=== PATIENT | male | born 1970 | race Caucasian/White ===

== ENCOUNTER 2016-12-17 11:04 | Emergency (ER) | payer MEDICAID ==
[2016-12-17 11:36] LABS: BASOPHILS 0.5 % (0-2); EOSINOPHILS 0.6 % (0-7); HEMATOCRIT 45.4 % (42.0-54.0); HEMOGLOBIN 15.2 g/dL (13.5-17.5); IMMATURE GRANULOCYTES 0.1 % (0-5); LYMPHOCYTES 31.7 % (15-50); MCH 28.8 pg (26.0-34.0); MCHC 33.5 g/dL (31.0-37.0); MCV 86.1 fL (80.0-100.0); MEAN PLATELET VOLUME 10.2 fL (7.4-10.4); MONOCYTES 7.6 % (2-11); NEUTROPHILS 59.5 % (40-80); PLATELET COUNT 230 10x3/uL (130-400); RBC 5.27 10x6/uL (4.20-6.10); RDW 15.2 % (11.5-14.5); WBC 8.2 10x3/uL (4.8-10.8)
[2016-12-17 12:16] LABS: ALBUMIN 3.4 g/dL (3.4-5.0); ANION GAP 13.9 mmol/L (8-16); BILIRUBIN - TOTAL 1.73 mg/dL (0.2-1.3); CALCIUM 9.1 mg/dL (8.5-10.1); CARBON DIOXIDE 23.9 mmol/L (21.0-32.0); CREATININE - SERUM 1.4 mg/dL (0.6-1.3); POTASSIUM - SERUM 4.8 mmol/L (3.5-5.1); PROTEIN - SERUM 7.1 g/dL (6.4-8.2)
[2016-12-17 12:34] LABS: MAGNESIUM - SERUM 1.9 mg/dL (1.8-2.4)
[2016-12-17 12:36] LABS: TROPONIN-I 0.324 ng/mL (0.000-0.060)
[2016-12-19 09:11] VITALS: BMI 30.4
== END 2016-12-17 14:28 | disposition left against medical advice (07) ==
LOC: D.ER 11:04
PROVIDERS: Emergency Medicine
DX: R79.89 Other specified abnormal findings of blood chemistry (principal); F15.90 Other stimulant use, unspecified, uncomplicated; F17.200 Nicotine dependence, unspecified, uncomplicated

== ENCOUNTER 2016-12-18 05:22 | Outpatient (CLI) | payer MEDICAID ==
[~2016-12-18] VITALS: Ht 172.7 cm; Wt 90.7 kg
--- NOTE | ~2016-12-18 | HEMODYNAMI ---
PATIENT:DELVIN HSU MEDICAL RECORD: [id number] : 66 LOCATION:[facility]# [id number] ADMISSION DATE: 12/18/16 Generatedon:12/18/20169:31 Patient name: DELVIN HSU Patient #: [id number] SSN: : 1970 Date of study: 12/18/2016 Page: Of Hemodynamic Procedure Report Patient Data Patient Demographics Procedure consent was obtained First Name: DELVIN Gender: Male Last Name: ARACELIS : 1970 Middle Initial: JOE Age: 46 year(s) Patient #: [id number] Race: Unknown Additional ID: [id number] Contact details [address]: [address] [place] [address] DRIVE State: [place] City: [place] Zip code: [address] Admission Admission Data Admission Date: 12/18/2016 Admission Time: 5:22 Admit Source: Emergency department Lab Results Lab Result Date: 12/18/2016 Lab Result Time: 0:00 Biochemistry Name Units Result Min Max BUN mg/dl 30 --(----)-* 7 18 Creatinine mg/dl 1.6 --(----)-* 0.6 1.3 Troponin l ng/ml 14.285 --(----)-* 0 0.06 CBC Name Units Result Min Max Hemoglobin g/dl 15.8 --(--*-)-- 13.5 17.5 Procedure Procedure Types Cath Procedure Diagnostic Procedure [facility] w/Coronaries Aortic Root Angiography Procedure Description Procedure Date Procedure Date: 12/18/2016 Procedure Start Time: 9:12 Procedure End Time: 9:30 Procedure Staff Name Function Margarito Cannon MD Performing Physician Faisal Gonzalez RT Scrub Lili Swartz RN Nurse Carlos Gaxiola RT Monitor Procedure Data Cath Procedure Fluoroscopy Diagnostic fluoroscopy Total fluoroscopy Time: 1.8 time: 1.8 min min Diagnostic fluoroscopy Total fluoroscopy dose: 612 dose: 612 mGy mGy Contrast Material Contrast Material Type Amount (ml) Isovue 300 102 Entry Location Entry Primary Successful Side Size Upsize Upsize Entry Closure Succes sful Closure Location (Fr) 1 (Fr) 2 (Fr) Remarks Device Remarks Femoral Right 6 Fr Exoseal artery Short Estimated blood loss: 10 ml Diagnostic catheters Device Type Used For End Catheter Placement Cordis 5Fr JL 4.0 Procedure Catheter (MP) Cordis 5Fr 3DRC Catheter Procedure (MP) Cordis 5Fr Pigtail Procedure Catheter (MP) Procedure Complications No complications Procedure Medications Medication Administration Route Dosage Oxygen NC 2 l/min Heparin Flush Bag added to field 2 bags (1000units/500ml NS) Lidocaine 2% added to field 20 Versed I.V. 1 mg Fentanyl I.V. 50 mcg Fentanyl I.V. 50 mcg Hemodynamics Rest HGB: 15.8 (g/dl) Heart Rate: 93 (bpm) Pressure Samples Time Site Value (mmHg) Purpose Heart Use Rate(bpm) 9:15 AO 108/87(98) Snapshot 84 9:19 LV 117/5,29 Snapshot 86 9:21 AO 115/85(98) Pullback 86 9:21 LV 121/9,35 Pullback 86 Gradients Valve Time Site 1 Site 2 Mean SEP/DFP Peak To Heart Use (mmHg) (sec/min) Peak Rate (mmHg) (bpm) Aortic 9:21 LV AO 12 9 6 86 121/9,35 115/85(98) Calculations Valve P-P Mean Valve Index Valve Source Name Gradient Area Flow (cm2) Aortic 6 12 6 12 Snapshots Pre Cath Intra NCS Post Cath Vital Signs Time Heart Resp SPO2 etCO2 [id number] NIBP (mmHg) Rhythm Pain Status Cristy tion Rate (ipm) (%) (mmHg) (mmHg) Level (bpm) 8:58:54 91 22 96 0 0 132/93(104) NSR 4 (11) , 10(A ) Distressing 9:03:12 91 21 99 0 0 130/95(103) NSR 4 (11) , 10(A ) Distressing 9:07:26 89 17 98 0 0 134/105(115) NSR 0 (11) , No 9(A) pain 9:11:42 88 16 98 0 0 133/92(115) NSR 0 (11) , No 9(A) pain 9:16:00 81 16 98 0 0 133/89(100) NSR 0 (11) , No 9(A) pain 9:20:12 87 14 97 0 0 127/99(114) NSR 0 (11) , No 9(A) pain 9:24:24 86 16 96 0 0 130/91(105) NSR 0 (11) , No 9(A) pain 9:28:40 85 13 97 0 0 130/83(105) NSR 0 (11) , No 9(A) pain Medications Time Medication Route Dose Verified Delivered Reason Notes Effect iveness by by 9:03:01 Oxygen NC 2 Margarito Lili Per l/min Davis Swartz RN physician 9:03:11 Heparin Flush added 2 Margarito Margarito used for Bag to bags Davis Cannon MD procedure (1000units/500ml field NS) 9:03:17 Lidocaine 2% added 20ml Margarito Margarito used for to vial Davis Cannon MD procedure field 9:03:23 Versed I.V. 1 mg Margarito Lili for Davis Swartz RN sedation 9:03:30 Fentanyl I.V. 50 Margarito Lili for mcg Davis Swartz RN sedation 9:06:01 Fentanyl I.V. 50 Margarito Lili for mcg Davis Swartz RN sedation Procedure Log Time Note 8:30:57 Faisal Gonzalez RT(R) sent for patient. Start room use. 8:42:49 ACC Patient presents with Unstable Angina CCS Anginal Class 3--Marked limitation of physical activity, angina occurs with ordinary activity.. 8:42:51 Diagnostic Cath status Urgent 8:42:54 Admit Source: Emergency department 8:43:17 Time tracking: Regular hours 8:43:22 Plan of Care:Hemodynamics will remain stable., Cardiac rhythm will remain stable., Comfort level will be maintained., Respiratory function will remain adequate., Patient/ family verbilizes understanding of procedure., Procedure tolerated without complication., Recovers from procedure without complications.. 8:47:58 Lab Result : BUN 30 mg/dl 8:47:58 Lab Result : Creatinine 1.6 mg/dl 8:47:58 Lab Result : Hemoglobin 15.8 g/dl 8:47:58 Lab Result : Troponin l 14.285 ng/ml 8:48:03 Lab results completed and on chart. 8:51:07 Patient received from ED to CCL 1 Alert and oriented. Tansferred to table in Supine position. 8:51:08 Warm blankets applied, and timothy hugger turned on for patient comfort. 8:51:09 Correct patient and procedure confirmed by team. 8:51:11 Signed procedure consent form obtained from patient. 8:51:13 ECG and BP/O2 sat monitors applied to patient. 8:57:39 Vital chart was started 8:57:42 Baseline sample Acquired. 8:57:45 Rhythm: sinus rhythm 8:57:47 Full Disclosure recording started 8:57:52 H&P Date Dictated: 12/18/2016 Emergent; H&P N/A. 8:57:53 Pre-procedure instructions explained to patient. 8:57:53 Pre-op teaching completed and patient verbalized understanding. 8:57:55 Family unavailable. 8:57:56 Patient NPO since Midnight. 8:58:04 Is the patient allergic to Iodine/contrast media? No. 8:58:07 Is patient on blood thinner?No 8:58:09 Patient diabetic? No. 8:58:12 Previous problem with sedation/anesthesia? No ? 8:58:13 Snore? Yes 8:58:14 Sleep apnea? No 8:58:21 Opens mouth fully? Yes 8:58:22 Sticks out tongue? Yes 8:58:24 Airway obstruction? No ? 8:58:26 Dentures? No ? 8:58:29 Pre procedure: right dorsailis pedis pulse 1+ Palpable, but thready & weak; easily obliterated 8:58:31 Physician opted for femoral approach due to high Troponin. 8:58:33 Patient pain scale 4/10 chest pressure, physcian observed.. 9:00:29 Pt has 22g IV in foot that had heparin running, heparin was DC'D upon arrival to [employer]. 9:01:08 Pt has PICC line in left upper arm with 0.9% NaCl at [facility]. 9:01:55 Right groin area was prepped with chlora-prep and draped in sterile fashion 9:01:56 Alarms reviewed by R. N. 9:01:57 Sharps counted by scrub and verified by R.N. 9:02:54 --------ALL STOP TIME OUT------ 9:02:55 Final Timeout: patient, procedure, and site verified with staff and physician. All members of the team are in agreement. 9:02:57 Right groin site verified by team. 9:03:00 Physical assessment completed. ASA score P 2 - A patient with mild systemic disease as per Margarito Cannon MD. 9:03:01 Oxygen 2 l/min NC was administered by Lili Swartz RN; Per physician; 9:03:03 Sedation plan: IV Moderate Sedation Versed, Fentanyl 9:03:11 Heparin Flush Bag (1000units/500ml NS) 2 bags added to field was administered by Margarito Cannon MD; used for procedure; 9:03:17 Lidocaine 2% 20ml vial added to field was administered by Margarito Cannon MD; used for procedure; 9:03:23 Versed 1 mg I.V. was administered by Lili Swartz RN; for sedation; 9:03:30 Fentanyl 50 mcg I.V. was administered by Lili Swartz RN; for sedation; 9:06:01 Fentanyl 50 mcg I.V. was administered by Lili Swartz RN; for sedation; 9:12:48 Procedure started. 9:12:52 Local anesthetic to right femoral artery with Lidocaine 2% by Margarito Cannon MD.INITIAL ACCESS ONLY 9:12:54 Use device set Femoral Dx 9:12:56 Tegaderm 4 x 4 opened to sterile field. 9:12:56 Acist Manifold opened to sterile field. 9:12:57 Acist Hand Control opened to sterile field. 9:12:59 Acist Syringe opened to sterile field. 9:12:59 Bag Decanter opened to sterile field. 9:12:59 Medline Cath Pack opened to sterile field. 9:13:00 St Gino 260cm J .035 wire opened to sterile field. 9:13:01 Diagnostic Infinity 5Fr Multipack catheter opened to sterile field. 9:13:08 Terumo 6Fr Moorcroft Sheath opened to sterile field. 9:14:15 A 6 Fr Short sheath was inserted into the Right Femoral artery 9:15:15 A Cordis 5Fr JL 4.0 Catheter (ANISHA) was advanced over the wire and used for Procedure. 9:15:49 LCA angiography performed. 9:16:33 Catheter exchanged over wire. 9:16:39 A Cordis 5Fr 3DRC Catheter (MP) was advanced over the wire and used for Procedure. 9:17:45 RCA angiography performed. 9:18:15 Catheter exchanged over wire. 9:18:21 A Cordis 5Fr Pigtail Catheter (MP) was advanced over the wire and used for Procedure. 9:20:04 LV angiography performed. 9:20:07 LV gram done using RAY 9:20:20 EF : 20 % 9:20:22 LV hemodynamics recorded. 9:20:25 Injector settings: Ml/sec: 10, Volume: 20, 9:22:33 Aortic Root visualized 9:22:37 Injector settings: Ml/sec: 15, Volume: 30, 9:23:22 Catheter removed. 9:23:30 Cordis 6Fr Exoseal opened to sterile field. 9:23:46 Sheath removed intact; hemostasis achieved with Exoseal to the Right Femoral artery. 9:23:49 Procedure ended.(Physican Out) 9:24:02 Fluoroscopy time 01.80 minutes. 9:24:07 Flurop Dose total: 612 9:24:07 Fluoroscopy dose: 612 mGy 9:24:42 Contrast amount:Isovue 300 102ml. 9:24:54 Sharps counted by scrub and verified by R.N. 9:25:05 Insertion/operative site no bleeding no hematoma. 9:25:09 Post-op/insertion site Right Femoral artery dressed using a 4 x 4 and Tegaderm. 9:25:10 Post Procedure Pulses reassessed and unchanged 9:25:14 Post-procedure physical assessment completed. ASA score P 2 - A patient with mild systemic disease as per Margarito Cannon MD. 9:25:17 Post procedure rhythm: unchanged. 9:25:21 Estimated blood loss: 10 ml 9:25:22 Post procedure instruction explained to patient.Patient verbalizes understanding. 9:25:22 Patient needs reinforcement of post procedure teaching. 9:25:48 Procedure type changed to Cath procedure, Diagnostic procedure, LHC, LHC w/Coronaries, Aortic Root Angiography 9:25:52 Procedure Complication : No complications 9:26:22 Procedure and supply charges have been captured, reviewed, submitted and are correct. 9:29:49 Vital chart was stopped 9::49 See physician's report for complete and final results. 9:29:54 Report given to PCU. 9:30:21 Patient transfered to PCU with Bed. 9:30:24 Procedure ended. 9:30:24 Full Disclosure recording stopped 9:30:35 End room use (Document Last) Device Usage Item Name Manufacture Quantity Catalog Hospital Part Current Minimal Lo t# / Number Charge Number Stock Stock Serial# Code Tegaderm 4 3M 1 [id number] [id number] [id number] 5 x 4 Acist Acist 1 55798 455273 310339 422429 5 Manifold [employer] Inc Acist Hand Acist 1 30819 120588 313360 590419 5 Control [employer] Inc Acist Acist 1 42878 316161 253296 072317 20 Syringe Medical Systems Inc Bag Microtek 1 2002S 078758 65025 392179 5 [employer] Medline Cardinal 1 [id number] 014843 83798 978356 [address] Gino 1 [id number] 289332 240493 570660 30 260cm J .035 wire Diagnostic Cardinal 1 [id number] 068477 76097 793866 30 Infinity Health 5Fr Multipack catheter Terumo 6Fr Terumo 1 [id number] 872864 356562 691237 40 Moorcroft Sheath Cordis 5Fr Cardinal 1 [id number] 5 JL 4.0 Health Catheter (MP) Cordis 5Fr Cardinal 1 489641 5 3DRC Health Catheter (MP) Cordis 5Fr Cardinal 1 039033 5 Pigtail Health Catheter (MP) Cordis 6Fr Cardinal 1 EX600 761978 765900 426971 10 Ali Signature Audit [place] Stage Time Signature Unsigned Intra-Procedure 12/18/2016 Faisal Gonzalez 9:31:40 AM RT(R) Signatures Monitor : Carlos Gaxiola RT Signature : Date : Time : [facility] [address] [facility] [place] [address]
[2016-12-18 07:24] LABS: ALBUMIN 3.3 g/dL (3.4-5.0); ALKALINE PHOSPHATASE 94 U/L (46-116); CALC OSMOLALITY 275 mosm/kg (275-300); CALCIUM 9.1 mg/dL (8.5-10.1); CARBON DIOXIDE 24.8 mmol/L (21.0-32.0); CHLORIDE - SERUM 103 mmol/L (98-107); CREATININE - SERUM 1.6 mg/dL (0.6-1.3); GLUCOSE 94 mg/dL (74-106); POTASSIUM - SERUM 4.7 mmol/L (3.5-5.1); SODIUM 135 mmol/L (136-145); UREA NITROGEN 30 mg/dL (7-18); eGFR NON AFRICAN AMERICAN 49 mL/min (90-120)
[2016-12-18 07:25] LABS: ALT (SGPT) 38 U/L (10-68)
[2016-12-18 07:36] LABS: EOSINOPHILS 2.1 % (0-7); HEMATOCRIT 47.6 % (42.0-54.0); HEMOGLOBIN 15.8 g/dL (13.5-17.5); IMMATURE GRANULOCYTES 0.2 % (0-5); LYMPHOCYTES 45.7 % (15-50); MCH 28.5 pg (26.0-34.0); MCHC 33.2 g/dL (31.0-37.0); MCV 85.9 fL (80.0-100.0); MEAN PLATELET VOLUME 10.5 fL (7.4-10.4); MONOCYTES 9.7 % (2-11); NEUTROPHILS 41.3 % (40-80); PLATELET COUNT 206 10x3/uL (130-400); RBC 5.54 10x6/uL (4.20-6.10); RDW 14.9 % (11.5-14.5); WBC 6.3 10x3/uL (4.8-10.8)
[2016-12-18 07:38] LABS: CHOL - HDL RATIO 2.8 ratio (2.3-4.9); CHOLESTEROL, TOTAL 152 mg/dL (0-200); CKMB 56.9 U/L (0.0-3.6); HDL CHOLESTEROL 54 mg/dL (32-96); LDL CHOLESTEROL 81 mg/dL (0-100); LDL-HDL RATIO 1.5 ratio (1.5-3.5); TRIGLYCERIDE 88 mg/dL (30-200)
[2016-12-18 07:40] LABS: CREATINE KINASE 340 UL (21-232)
[2016-12-18 07:43] LABS: TROPONIN-I 14.285 ng/mL (0.000-0.060)
--- NOTE | 2016-12-18 10:13 | NUR ---
TRANSFER FROM FOOT ORTHOPEDIST BY BED. VS WNL. RIGHT GROIN STABLE WITHOUT BLEEDING OR HEMATOMA NOTED. WILL MONITOR.
[2016-12-18 10:40] VITALS: BP 124/88; BMI 30.4
--- NOTE | 2016-12-18 12:15 | NUR ---
BR UP. GROIN STABLE.
[2016-12-18 12:17] VITALS: BP 132/98
--- NOTE | 2016-12-18 13:44 | NUR ---
LEAVING FOR CT BY BED.
[2016-12-18 16:28] VITALS: BP 140/104
--- NOTE | 2016-12-18 19:00 | NUR ---
INITIAL ROUNDS MADE. PT SITTING UP IN BED WATCHING TV. DENIES NEEDS OR C/O AT THIS TIME. CALL LIGHT IN REACH. WILL CONT TO MONITOR.
[2016-12-18 20:13] VITALS: BP 105/60
[2016-12-18 23:40] VITALS: BP 119/85
[2016-12-19 03:43] VITALS: BP 129/93
[2016-12-19 09:11] VITALS: Ht 172.7 cm; Wt 90.7 kg
[2016-12-19 09:28] VITALS: BP 135/86
[2016-12-19 12:22] VITALS: BP 117/80
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
--- NOTE | 2016-12-19 15:06 | EC ---
PATIENT:DELVIN HSU DATE OF SERVICE: 12/18/16 SEX: M MEDICAL RECORD: [id number] DATE OF : [birth year] [facility] AGE OF PATIENT: 46 ADMISSION DATE: 12/18/16 REFERRING PHYSICIAN: INTERPRETING PHYSICIAN: ULI CANNON M.D. ECHOCARDIOGRAM REPORT ECHO CHARGES 4 ECHO COMPLETE CLINICAL DIAGNOSIS: NON Q NE / ASSESS FOR PERICARDIAL EFFUSION ECHOCARDIOGRAPHIC MEASUREMENTS (adult normal given) AC root (d.<3.7cm) 3.3 LV Septum d (<1.2 cm> 1.2 Valve Excursion 2.0 LV Septum (systole) 1.3 Left Atria (s.<4.0cm> 3.6 LVPW d(<1.2cm) 1.0 RV (d.<2.3cm) 4.5 LVPW (sytole) 1.1 LV diastole(<5.6CM) 6.9 MV E-F(>70mm/sec) LV systole 6.3 LVOT Diameter 1.7 MV exc.(>10mm) 1.6 Est.ejection fraction (50-75%) Pericardial Effusion N DOPPLER: LVIT A 43.0 E 74.0 LA RVSP 42 LVOT 69 AOP1/2T Asc. Ao 84 RVOT 50 RA PA 75 AV Gradient Peak 2.85 AV Mean 1.50 AV Area 1.5 MV Gradient Peak 3.36 MV Mean 1.34 MV Area COMMENTS: Extruder Tender: Danny DE SOUZA Electrician Supervisor Substation:2 Dr. Cannon TAPE# PACS DATE OF SERVICE: 12/18/2016 INDICATION: Non-Q-wave myocardial infarction. DESCRIPTION: Left ventricle is wsvwtnmctb-ha-wyavihse dilated. There is severe LV dysfunction noted. Estimated ejection fraction is in the order of 15% consistent with cardiomyopathy. Mitral valve is structurally normal. There is mild regurgitation noted. Left atrium is normal size. The aortic valve in the parasternal views appears to be bicuspid. There is no evidence of stenosis. Right ventricle is moderately dilated. Tricuspid valve is structurally normal. ECHOCARDIOGRAM REPORT [id number] DELVIN HSU There is mild regurgitation noted. Right atrium is mildly dilated. There is no pericardial effusion seen. IMPRESSION: 1. Severely LV dysfunction with ejection fraction 15% consistent with cardiomyopathy. 2. Bicuspid aortic valve without stenosis. 3. Mild mitral regurgitation. 4. Mild tricuspid regurgitation. TRANSINT:[id number] Voice Confirmation ID: [id number] DOCUMENT ID: [id number] ULI CANNON M.D. at 1506 CC: [id number] DICTATION DATE: 12/18/16 1221 M1 ARMOR CREWMAN: 12/18/161999 [facility] [address] [place] [id number]
[2016-12-19 15:32] VITALS: BP 139/96
[2016-12-19] MEDS ORDERED: COREG 3.1253.125 MG PO (15:43)
[2016-12-19] MEDS ORDERED: LISINOPRIL2.5 MG PO (15:43)
--- NOTE | 2016-12-19 16:12 | NUR ---
IV AND TELEMETRY DCD. DC PLANS GIVEN. UNDERSTANDING VOICED. LEAVING HOSP WITH SISTER.
== END 2016-12-19 16:14 | disposition home or self-care (01) ==
LOC: D.ER 05:22 → D.CATH 05:22 → D.M2 05:22 → EDSTATUS 13:00 → D.M2 12-19 08:53 → D.CATH 12-19 08:53
PROVIDERS: Family Medicine
DX: I21.4 Non-ST elevation (NSTEMI) myocardial infarction (principal); I42.8 Other cardiomyopathies; I25.10 Atherosclerotic heart disease of native coronary artery without angina pectoris; I34.0 Nonrheumatic mitral (valve) insufficiency; I07.1 Rheumatic tricuspid insufficiency; Q23.1 Congenital insufficiency of aortic valve